=== PATIENT | female | born 1960 | race Caucasian/White ===

== ENCOUNTER 2017-07-02 06:52 | Outpatient (CLI) | payer BC | END 2017-07-02 06:53 | disposition home or self-care (01) | LOC: BICULT 06:52 | PROVIDERS: ATTEND Internal Medicine Rheumatology | DX: R10.11 Right upper quadrant pain (principal); N28.1 Cyst of kidney, acquired | CPT/HCPCS: 76705 ==

== ENCOUNTER 2019-09-22 07:42 | Outpatient (CLI) | payer BC ==
--- NOTE | 2019-09-22 08:20 | ULT ---
GALLBLADDER ULTRASOUND: HISTORY: Right upper quadrant abdominal pain FINDINGS: The liver demonstrates mildly increased echogenicity without focal mass or intrahepatic biliary ducta l dilatation. No gallstones, gallbladder wall thickening or pericholecystic fluid are seen. The visualized portions of the pancreas are normal. There is a 5 mm echogenic focus in the right fawad l cortex. No hydronephrosis seen in the right kidney. The common duct [id number] in diameter. No free fluid is seen in the Vasquez's pouch. IMPRESSION: 1. Mild fatty infiltration of the liver 2. No evidence of cholelithiasis 3. Probable nonobstructing 5 mm right renal calculus
== END 2019-09-22 07:43 | disposition home or self-care (01) ==
LOC: BICULT 07:42
PROVIDERS: ATTEND Family Medicine
DX: R10.11 Right upper quadrant pain (principal); K76.0 Fatty (change of) liver, not elsewhere classified; N20.0 Calculus of kidney
CPT/HCPCS: 76705

== ENCOUNTER 2019-10-05 09:17 | Outpatient (CLI) | payer BC ==
--- NOTE | 2019-10-05 09:48 | ULT ---
LEFT LOWER EXTREMITY VENOUS ULTRASOUND: COMPARISON: None. HISTORY: Left lower extremity edema. TECHNIQUE: Multiplanar, gamble scale, and color Doppler images were obtained in a left lower extremity venous ultr asound. Spectral analysis of the Doppler waveforms was performed. FINDINGS: The left common femoral vein, profunda femoral vein, superficial femoral vein, and popliteal vein are normal in appearance without visible thrombus. These vessels demonstrate normal compression, flow, and augmentation. The posterior tibial vein and greater saphenous vein are also patent. IMPRESSION: No evidence of left lower extremity deep vein thrombosis. POS: [facility]
== END 2019-10-05 09:18 | disposition home or self-care (01) ==
LOC: BICULT 09:17
PROVIDERS: ATTEND Family Medicine
DX: R60.0 Localized edema (principal); Z79.890 Hormone replacement therapy

== ENCOUNTER 2020-01-18 12:38 | Outpatient (CLI) | payer OTHER | END 2020-01-18 12:39 | disposition home or self-care (01) | LOC: DTY/OP 12:38 | PROVIDERS: ATTEND Family Medicine | DX: R73.03 Prediabetes (principal) | CPT/HCPCS: 97802 ==

== ENCOUNTER 2020-12-14 07:50 | Outpatient (CLI) | payer BC | END 2020-12-14 07:51 | disposition home or self-care (01) | LOC: BICMAMMO 07:50 | PROVIDERS: ATTEND Obstetrics & Gynecology | DX: Z12.31 Encounter for screening mammogram for malignant neoplasm of breast (principal) | CPT/HCPCS: 77063; 77067 ==

== ENCOUNTER 2021-12-14 08:26 | Outpatient (CLI) | payer BC | END 2021-12-14 08:27 | disposition home or self-care (01) | LOC: BICULT 08:26 | PROVIDERS: ATTEND Family Medicine | DX: Z12.31 Encounter for screening mammogram for malignant neoplasm of breast (principal); N63.10 Unspecified lump in the right breast, unspecified quadrant; N64.4 Mastodynia | CPT/HCPCS: 76999; 77063; 77067 ==

== ENCOUNTER 2023-01-08 10:55 | Outpatient (CLI) | payer BC | END 2023-01-08 10:56 | disposition home or self-care (01) | LOC: BICMAMMO 10:55 | PROVIDERS: ATTEND Obstetrics & Gynecology | DX: Z12.31 Encounter for screening mammogram for malignant neoplasm of breast (principal) | CPT/HCPCS: 77063; 77067 ==

== ENCOUNTER 2024-01-14 08:56 | Outpatient (CLI) | payer BC | END 2024-01-14 08:57 | disposition home or self-care (01) | LOC: BICMAMMO 08:56 | PROVIDERS: ATTEND Obstetrics & Gynecology | DX: Z12.31 Encounter for screening mammogram for malignant neoplasm of breast (principal) | CPT/HCPCS: 77063; 77067 ==

== ENCOUNTER 2025-01-25 13:18 | Outpatient (CLI) | payer BC | END 2025-01-25 13:19 | disposition home or self-care (01) | LOC: BICMAMMO 13:18 | PROVIDERS: ATTEND Obstetrics & Gynecology | DX: Z12.31 Encounter for screening mammogram for malignant neoplasm of breast (principal); M81.0 Age-related osteoporosis without current pathological fracture | CPT/HCPCS: 77063; 77067; 77080 ==